=== PATIENT | female | born 1940 | race Caucasian/White ===

== ENCOUNTER 2017-04-30 10:42 | Inpatient (IN) | payer MEDICARE, OTHER ==
[~2017-04-30] VITALS: Ht 154.9 cm; Wt 114.0 kg
[~2017-04-30 10:42] MED LIST: AMLO5TAB4 PO; AMLODIPINE BESYLATE 5 MG TAB; ERGO500041 PO; FLUO-1; FLUO20CA22 PO; GABA100C PO; GABAPENTIN 100 MG; GABAPENTIN 100 MG CAPSULE; NITR100C6 PO; OMEP20CA10 PO; OMEPRAZOLE DR 20 MG CAPSULE; OXYC10TA47 PO; OXYCODONE 10 MG; VIT D2 1.25 MG (50,000 UNIT)
[2017-04-30] MEDS ORDERED: morphine 2 MG/ML inj. syringe IV ONE (12:50)
[2017-04-30] MEDS ORDERED: ondansetron/PF 4mg/2ml inj IV ONE (12:50)
[2017-04-30] MEDS ORDERED: morphine 5 MG/ML injection IV ONE (13:10)
[2017-04-30 13:38] LABS: BASOPHILS % (AUTO) 0.1 % (0-1); EOSINOPHILS # (AUTO) 0.1 X10'3 (0-0.9); EOSINOPHILS % (AUTO) 0.5 % (0-6); HEMATOCRIT 34.2 % (35.0-45.0); HEMOGLOBIN 11.1 g/dl (12.0-16.0); LYMPHOCYTES # (AUTO) 0.5 X10'3 (1.1-4.8); LYMPHOCYTES % (AUTO) 4.1 % (21-51); MEAN CORPUSCULAR HEMOGLOBIN 30.4 PG (27.0-31.0); MEAN CORPUSCULAR HGB CONC 32.6 % (33.0-36.5); MEAN CORPUSCULAR VOLUME 93.2 FL (78-98); MEAN PLATELET VOLUME 8.8 FL (7.4-10.4); MONOCYTES # (AUTO) 0.4 X10'3 (0-0.9); MONOCYTES % (AUTO) 3.1 % (2-12); NEUTROPHILS # (AUTO) 10.8 X10'3 (1.8-7.7); NEUTROPHILS % (AUTO) 92.2 % (42-75); PLATELET COUNT 348 X10'3 (140-440); RED BLOOD COUNT 3.67 X10'6 (4.20-5.60); RED CELL DISTRIBUTION WIDTH 15.1 % (11.5-14.5); WHITE BLOOD COUNT 11.7 X10'3 (4.5-11.0)
[2017-04-30 13:46] LABS: CLARITY,URINE CLOUDY (Clear); COLOR,URINE YELLOW (Yellow); GLUCOSE, URINE NEGATIVE (Neg); KETONES,URINE NEGATIVE (Neg); LEUKOCYTE ESTERASE ,URINE SMALL (Neg); NITRITES, URINE NEGATIVE (Neg); OCCULT BLOOD,URINE MODERATE (Neg); PROTEIN,URINE >=300 mg/dl (Neg); UROBILINOGEN,URINE 0.2 E.U/dL (0.2-1.0)
[2017-04-30 13:47] LABS: UA COLLECTION TYPE FOLEY CATH
[2017-04-30 13:58] LABS: BACTERIA,URINE 4+ /HPF (Neg); YEAST MANY /HPF (NEGATIVE)
[2017-04-30 13:59] LABS: SQUAMOUS EPITHELIAL CELL,UR MANY /LPF (FEW); TRANSITIONAL EPI CELLS,URINE MODERATE /HPF
[2017-04-30 14:00] LABS: WBC,URINE 50-100 /HPF (0-4)
[2017-04-30 14:01] LABS: ALANINE AMINOTRANSFERASE 19 U/L (12-78); ALBUMIN 3.1 G/DL (3.4-5.0); ALBUMIN/GLOBULIN RATIO 0.8 (1.1-1.5); ALKALINE PHOSPHATASE 94 IU/L (46-116); ANION GAP 8 (8-16); ASPARTATE AMINO TRANSFERASE 15 U/L (10-37); BILIRUBIN,TOTAL 0.4 MG/DL (0.1-1.0); BLOOD UREA NITROGEN 34 MG/DL (7-18); BUN/CREATININE RATIO 28.6 (6.6-38.0); CALCIUM 8.2 MG/DL (8.5-10.1); CHLORIDE 105 MMOL/L (99-107); CREATININE 1.19 MG/DL (0.40-0.90); GLUCOSE 195 MG/DL (70-104); LIPASE 137 U/L (73-393); POTASSIUM 5.5 MMOL/L (3.5-5.1); SODIUM 140 MMOL/L (135-145); TOTAL CARBON DIOXIDE 27.2 MMOL/L (24-32); eGFR 44 ML/MIN
[2017-04-30 14:02] LABS: AMORPHOUS URATES 3+
[2017-04-30] MEDS ORDERED: ondansetron/PF 4mg/2ml inj IV PRN (16:15)
[2017-04-30] MEDS ORDERED: magnesium hydroxide 30ml (MOM) UD suspension PO PRN (16:15)
[2017-04-30] MEDS ORDERED: mag hydrox/Alum hydrox/simeth 30ml oral suspension PO PRN (16:15)
[2017-04-30] MEDS ORDERED: HYDROmorphone 1 mg/ml syringe IV PRN (16:15)
[2017-04-30] MEDS ORDERED: piperacillin/tazo 3.375gm/50ml 50 ML IV ONE (16:29)
[2017-04-30] MEDS ORDERED: GABA-530 PO (16:34)
[2017-04-30] MEDS ORDERED: AMLO5TAB PO (16:34)
[2017-04-30] MEDS: normal saline 1000ml 1,000 ML IV SCH (17:07)
[2017-04-30 17:36] VITALS: BP 121/39
[2017-04-30] MEDS ORDERED: magnesium 4gm in 100ml NS 100 ML IV PRN (17:50)
[2017-04-30] MEDS ORDERED: magnesium Cl slow-release 64mg tablet PO PRN (17:50)
[2017-04-30] MEDS ORDERED: magnesium 2GM in 50ml NS 50 ML IV PRN (17:50)
[2017-04-30 18:00] VITALS: BP 111/35
[2017-04-30 18:31] LABS: MAGNESIUM 2.3 MG/DL (1.5-2.4)
[2017-04-30] MEDS: morphine 4 MG/ML inj SYRINge IV PRN (19:47)
[2017-04-30] MEDS: piperacillin/tazo 3.375gm/50ml 50 ML IV SCH (21:15)
[2017-04-30 22:00] VITALS: BP 108/35
[2017-04-30] MEDS: diatr meglu/diatrizoate 30ml oral sol.-(3 dose) bottle PO SCH (22:28)
[2017-04-30] MEDS: gabapentin 100mg capsule PO SCH (23:56)
[2017-05-01] VITALS (7 sets, daily range): BP systolic 104–144; BP diastolic 42–87
[2017-05-01 01:23] LABS: ALBUMIN 2.9 G/DL (3.4-5.0); ANION GAP 8 (8-16); BLOOD UREA NITROGEN 35 MG/DL (7-18); BUN/CREATININE RATIO 24.6 (6.6-38.0); CALCIUM 8.4 MG/DL (8.5-10.1); CHLORIDE 107 MMOL/L (99-107); CREATININE 1.42 MG/DL (0.40-0.90); GLUCOSE 144 MG/DL (70-104); MAGNESIUM 2.3 MG/DL (1.5-2.4); SODIUM 142 MMOL/L (135-145); TOTAL CARBON DIOXIDE 26.7 MMOL/L (24-32); eGFR 36 ML/MIN
[2017-05-01 01:32] LABS: POTASSIUM 6.5 MMOL/L (3.5-5.1)
[2017-05-01] MEDS: piperacillin/tazo 3.375gm/50ml 50 ML IV SCH (02:16)
[2017-05-01] MEDS: normal saline 1000ml 1,000 ML IV SCH ×2 (02:20→12:15)
[2017-05-01 02:45] LABS: BASOPHILS # (AUTO) 0.1 X10'3 (0-0.2); BASOPHILS % (AUTO) 1.2 % (0-1); EOSINOPHILS # (AUTO) 0.1 X10'3 (0-0.9); EOSINOPHILS % (AUTO) 1.2 % (0-6); HEMATOCRIT 31.5 % (35.0-45.0); HEMOGLOBIN 10.5 g/dl (12.0-16.0); LYMPHOCYTES % (AUTO) 11.1 % (21-51); MEAN CORPUSCULAR HGB CONC 33.4 % (33.0-36.5); MEAN CORPUSCULAR VOLUME 92.9 FL (78-98); MEAN PLATELET VOLUME 9.3 FL (7.4-10.4); MONOCYTES # (AUTO) 0.5 X10'3 (0-0.9); NEUTROPHILS # (AUTO) 6.9 X10'3 (1.8-7.7); NEUTROPHILS % (AUTO) 80.5 % (42-75); PLATELET COUNT 290 X10'3 (140-440); RED BLOOD COUNT 3.39 X10'6 (4.20-5.60); RED CELL DISTRIBUTION WIDTH 13.7 % (11.5-14.5); WHITE BLOOD COUNT 8.6 X10'3 (4.5-11.0)
[2017-05-01] MEDS ORDERED: insulin regular, human 10 units/0.1 ml syringe IV ONE (03:20)
[2017-05-01] MEDS ORDERED: calcium gluconate inj. 1 GM in normal saline 100ml IV soln 90 ML IV ONE (03:20)
[2017-05-01] MEDS ORDERED: dextrose 50%-water 50ml dispensing syringe IV ONE (03:20)
[2017-05-01] MEDS: morphine 4 MG/ML inj SYRINge IV PRN (04:02)
[2017-05-01] MEDS ORDERED: pantoprazole 40mg Tablet.DR PO SCH (07:30)
[2017-05-01 07:38] LABS: ALBUMIN 2.9 G/DL (3.4-5.0); ANION GAP 7 (8-16); BLOOD UREA NITROGEN 38 MG/DL (7-18); BUN/CREATININE RATIO 24.2 (6.6-38.0); CALCIUM 8.5 MG/DL (8.5-10.1); CHLORIDE 107 MMOL/L (99-107); CREATININE 1.57 MG/DL (0.40-0.90); GLUCOSE 128 MG/DL (70-104); POTASSIUM 5.8 MMOL/L (3.5-5.1); SODIUM 141 MMOL/L (135-145); TOTAL CARBON DIOXIDE 27.3 MMOL/L (24-32); eGFR 32 ML/MIN
[2017-05-01] MEDS: FLUoxetine 20mg capsule PO SCH (08:00)
[2017-05-01] MEDS ORDERED: amLODIPine 5mg tablet PO SCH (08:00)
[2017-05-01] MEDS: gabapentin 100mg capsule PO SCH ×2 (08:00→16:00)
[2017-05-01] MEDS: diatr meglu/diatrizoate 30ml oral sol.-(3 dose) bottle PO SCH ×2 (09:00→21:00)
[2017-05-01] MEDS ORDERED: sodium polystyrene sulfonate ENEMA 30gm/120ml RC ONE (09:10)
[2017-05-01] MEDS ORDERED: dextrose ORAL solution 15 GM/59 ML bottle PO PRN ×2 (09:35)
[2017-05-01] MEDS ORDERED: glucagon, human recombinant 1mg kit SUBCUT PRN (09:35)
[2017-05-01] MEDS ORDERED: MESSAGE TO PHARMACY PO ONE (09:35)
[2017-05-01 10:21] LABS: ABG BASE EXCESS -7.2 mmol/L (-2.0-3.0); ABG HCO3 22.4 mmol/L (22.0-26.0); ABG OXYGEN SATURATION 89.2 % (95-98); ABG PCO2 (T) 73.8 mmHg (32.0-45.0); ABG PH (T) 7.101 (7.350-7.450); ABG PO2 (T) 55.3 mmHg (83-108); ALLEN'S TEST Positive; FCOHb 0.2 % (0.5-1.5); FMetHb 0.3 % (0.3-1.12); FO2Hb 88.8 % (94-100); TOTAL HEMOGLOBIN 8.3 G/dl (12.0-16.0)
[2017-05-01 15:50] LABS: ABG BASE EXCESS -8.4 mmol/L (-2.0-3.0); ABG HCO3 20.8 mmol/L (22.0-26.0); ABG OXYGEN SATURATION 95.9 % (95-98); ABG PCO2 (T) 63.5 mmHg (32.0-45.0); ABG PH (T) 7.134 (7.350-7.450); ABG PO2 (T) 81.5 mmHg (83-108); ALLEN'S TEST Positive; FCOHb 0.3 % (0.5-1.5); FMetHb 0.2 % (0.3-1.12); FO2Hb 95.4 % (94-100); MINUTE VOLUME 6 L/min; RESPIRATORY RATE 24 b/min; RESPIRATORY RATE (OBSERVED) 25 b/min; TOTAL HEMOGLOBIN 9.6 G/dl (12.0-16.0)
[2017-05-01] MEDS ORDERED: metroNIDAZOLE-Flagyl 500mg/NS 100 ML IV SCH (16:00)
[2017-05-01] MEDS ORDERED: mineral oil 133ml enema RC PRN (17:35)
[2017-05-01] MEDS ORDERED: mineral oil 133ml enema RC ONE (17:35)
[2017-05-01] MEDS: ampicill/sulbac 1.5gm/NS 100ml 100 ML IV SCH (20:03)
[2017-05-01] MEDS: insulin glargine (Lantus) pen - multi-dose SQ SCH (21:00)
[2017-05-01] MEDS: furosemide 40mg/4ml inj IV SCH (21:07)
[2017-05-02] VITALS (10 sets, daily range): BP systolic 111–129; BP diastolic 36–69
[2017-05-02] MEDS: ampicill/sulbac 1.5gm/NS 100ml 100 ML IV SCH ×4 (01:55→20:00)
[2017-05-02] MEDS: normal saline 1000ml 1,000 ML IV SCH ×2 (01:56→08:15)
[2017-05-02 05:57] LABS: BASOPHILS % (AUTO) 0.3 % (0-1); EOSINOPHILS # (AUTO) 0.1 X10'3 (0-0.9); EOSINOPHILS % (AUTO) 1.4 % (0-6); HEMATOCRIT 29.5 % (35.0-45.0); HEMOGLOBIN 9.6 g/dl (12.0-16.0); LYMPHOCYTES # (AUTO) 0.9 X10'3 (1.1-4.8); LYMPHOCYTES % (AUTO) 10.5 % (21-51); MEAN CORPUSCULAR HEMOGLOBIN 30.5 PG (27.0-31.0); MEAN CORPUSCULAR HGB CONC 32.6 % (33.0-36.5); MEAN CORPUSCULAR VOLUME 93.3 FL (78-98); MEAN PLATELET VOLUME 9.1 FL (7.4-10.4); MONOCYTES # (AUTO) 0.7 X10'3 (0-0.9); MONOCYTES % (AUTO) 7.4 % (2-12); NEUTROPHILS # (AUTO) 7.1 X10'3 (1.8-7.7); NEUTROPHILS % (AUTO) 80.4 % (42-75); PLATELET COUNT 256 X10'3 (140-440); RED BLOOD COUNT 3.16 X10'6 (4.20-5.60); WHITE BLOOD COUNT 8.8 X10'3 (4.5-11.0)
[2017-05-02 06:33] LABS: ALBUMIN 2.5 G/DL (3.4-5.0); ANION GAP 10 (8-16); BLOOD UREA NITROGEN 41 MG/DL (7-18); BUN/CREATININE RATIO 21.4 (6.6-38.0); CALCIUM 8.1 MG/DL (8.5-10.1); CHLORIDE 109 MMOL/L (99-107); CREATININE 1.92 MG/DL (0.40-0.90); GLUCOSE 72 MG/DL (70-104); MAGNESIUM 2.2 MG/DL (1.5-2.4); SODIUM 142 MMOL/L (135-145); TOTAL CARBON DIOXIDE 23.4 MMOL/L (24-32); eGFR 25 ML/MIN
[2017-05-02 06:43] LABS: POTASSIUM 6.3 MMOL/L (3.5-5.1)
[2017-05-02] MEDS: dextrose 50%-water 50ml dispensing syringe IV PRN ×3 (07:29→13:38)
[2017-05-02] MEDS: furosemide 40mg/4ml inj IV SCH (07:29)
[2017-05-02] MEDS ORDERED: insulin regular, human 10 units/0.1 ml syringe IV ONE (07:40)
[2017-05-02] MEDS ORDERED: dextrose 50%-water 50ml dispensing syringe IV ONE (07:40)
[2017-05-02] MEDS ORDERED: sodium bicarbonate (8.4%) 1 mEq/ml syringe IV ONE (07:40)
[2017-05-02] MEDS ORDERED: albuterol 2.5 MG/3 ML nebule NEB ONE (07:40)
[2017-05-02] MEDS: FLUoxetine 20mg capsule PO SCH (08:00)
[2017-05-02] MEDS: gabapentin 100mg capsule PO SCH ×3 (08:00→16:00)
[2017-05-02] MEDS ORDERED: levoFLOXACIN-Levaquin 500mg/D5 100 ML IV SCH (08:00)
[2017-05-02] MEDS ORDERED: calcium gluconate inj. 1 GM in normal saline 100ml IV soln 90 ML IV ONE (08:45)
[2017-05-02 10:25] LABS: ABG BASE EXCESS -5.2 mmol/L (-2.0-3.0); ABG HCO3 21.5 mmol/L (22.0-26.0); ABG OXYGEN SATURATION 96.7 % (95-98); ABG PH (T) 7.271 (7.350-7.450); ABG PO2 (T) 88.4 mmHg (83-108); FCOHb 0.3 % (0.5-1.5); FMetHb 0.3 % (0.3-1.12); FO2Hb 96.1 % (94-100); MINUTE VOLUME 16 L/min; PATIENT TEMPERATURE 37.3; RESPIRATORY RATE 26 b/min; RESPIRATORY RATE (OBSERVED) 26 b/min; TIDAL VOLUME 594 mL; TOTAL HEMOGLOBIN 9.8 G/dl (12.0-16.0)
[2017-05-02] MEDS: dextrose 5%-water 1,000 ML IV SCH (15:21)
[2017-05-02 15:29] LABS: ALBUMIN 2.4 G/DL (3.4-5.0); ANION GAP 14 (8-16); BLOOD UREA NITROGEN 44 MG/DL (7-18); BUN/CREATININE RATIO 20.7 (6.6-38.0); CALCIUM 7.9 MG/DL (8.5-10.1); CHLORIDE 109 MMOL/L (99-107); CLARITY,URINE Turbid (Clear); COLOR,URINE Yellow (Yellow); CREATININE 2.13 MG/DL (0.40-0.90); GLUCOSE 80 MG/DL (70-104); GLUCOSE, URINE Negative (Neg); KETONES,URINE Negative (Neg); LEUKOCYTE ESTERASE ,URINE Large (Neg); NITRITES, URINE Negative (Neg); OCCULT BLOOD,URINE Trace (Neg); POTASSIUM 5.7 MMOL/L (3.5-5.1); PROTEIN,URINE 100 mg/dl (Neg); SODIUM 146 MMOL/L (135-145); TOTAL CARBON DIOXIDE 23.4 MMOL/L (24-32); eGFR 23 ML/MIN
[2017-05-02 15:34] LABS: UA COLLECTION TYPE FOLEY CATH
[2017-05-02 15:54] LABS: BACTERIA,URINE 4+ /HPF (Neg); RBC,URINE NONE SEEN /HPF (0-2); SQUAMOUS EPITHELIAL CELL,UR FEW /LPF (FEW); WBC,URINE TNTC /HPF (0-4)
[2017-05-02 15:55] LABS: YEAST MANY /HPF (NEGATIVE)
[2017-05-02 17:22] LABS: UA EOSINOPHILS NO EOS /HPF
[2017-05-02] MEDS: insulin glargine (Lantus) pen - multi-dose SQ SCH (21:00)
[2017-05-03] VITALS (7 sets, daily range): BP systolic 117–148; BP diastolic 33–77
[2017-05-03] MEDS: gabapentin 100mg capsule PO SCH ×3 (00:28→17:18)
[2017-05-03] MEDS: morphine 4 MG/ML inj SYRINge IV PRN (02:09)
[2017-05-03] MEDS: ampicill/sulbac 1.5gm/NS 100ml 100 ML IV SCH ×4 (02:16→20:47)
[2017-05-03 06:30] LABS: BASOPHILS % (AUTO) 0.6 % (0-1); EOSINOPHILS # (AUTO) 0.2 X10'3 (0-0.9); EOSINOPHILS % (AUTO) 2.5 % (0-6); HEMATOCRIT 27.4 % (35.0-45.0); HEMOGLOBIN 9.1 g/dl (12.0-16.0); LYMPHOCYTES # (AUTO) 1.1 X10'3 (1.1-4.8); LYMPHOCYTES % (AUTO) 17.2 % (21-51); MEAN CORPUSCULAR HEMOGLOBIN 30.2 PG (27.0-31.0); MEAN CORPUSCULAR HGB CONC 33.1 % (33.0-36.5); MEAN CORPUSCULAR VOLUME 91.2 FL (78-98); MEAN PLATELET VOLUME 9.3 FL (7.4-10.4); MONOCYTES # (AUTO) 0.7 X10'3 (0-0.9); MONOCYTES % (AUTO) 10.9 % (2-12); NEUTROPHILS # (AUTO) 4.6 X10'3 (1.8-7.7); NEUTROPHILS % (AUTO) 68.8 % (42-75); PLATELET COUNT 246 X10'3 (140-440); RED BLOOD COUNT 3.01 X10'6 (4.20-5.60); RED CELL DISTRIBUTION WIDTH 14.9 % (11.5-14.5); WHITE BLOOD COUNT 6.7 X10'3 (4.5-11.0)
[2017-05-03 06:39] LABS: ALBUMIN 2.4 G/DL (3.4-5.0); ANION GAP 10 (8-16); BLOOD UREA NITROGEN 42 MG/DL (7-18); BUN/CREATININE RATIO 19.1 (6.6-38.0); CALCIUM 7.6 MG/DL (8.5-10.1); CHLORIDE 108 MMOL/L (99-107); GLUCOSE 89 MG/DL (70-104); MAGNESIUM 2.1 MG/DL (1.5-2.4); POTASSIUM 5.3 MMOL/L (3.5-5.1); SODIUM 142 MMOL/L (135-145); TOTAL CARBON DIOXIDE 23.7 MMOL/L (24-32); eGFR 22 ML/MIN
[2017-05-03] MEDS: FLUoxetine 20mg capsule PO SCH (07:18)
[2017-05-03] MEDS: dextrose 5%-water 1,000 ML IV SCH (07:24)
[2017-05-03] MEDS ORDERED: guaiFENesin/codeine phos 10ml UD oral syrup PO PRN (07:30)
[2017-05-03] MEDS ORDERED: methylPREDNISolone sod succ/PF 40mg inj. IV ONE (07:35)
[2017-05-03 08:00] LABS: ABG HCO3 20.2 mmol/L (22.0-26.0); ABG OXYGEN SATURATION 94.6 % (95-98); ABG PCO2 (T) 42.5 mmHg (32.0-45.0); ABG PH (T) 7.294 (7.350-7.450); ABG PO2 (T) 74.6 mmHg (83-108); ALLEN'S TEST Positive; FCOHb 0.3 % (0.5-1.5); FLOW 2 L/min; FMetHb 0.3 % (0.3-1.12); TOTAL HEMOGLOBIN 9.9 G/dl (12.0-16.0)
[2017-05-03] MEDS: insulin regular, human 10 units/0.1 ml syringe IV ONE ×2 (08:20→10:35)
[2017-05-03] MEDS ORDERED: albuterol 2.5 MG/3 ML nebule NEB ONE (08:20)
[2017-05-03] MEDS ORDERED: dextrose 50%-water 50ml dispensing syringe IV ONE (08:20)
[2017-05-03] MEDS ORDERED: magnesium hydroxide 30ml (MOM) UD suspension PO ONE (13:20)
[2017-05-03] MEDS: lactobacillus rhamnosus 10,000 MMU CELLS/CAPSULE PO SCH (17:18)
[2017-05-03] MEDS: nystatin 15 GM powder TP SCH (20:47)
[2017-05-03] MEDS: insulin glargine (Lantus) pen - multi-dose SQ SCH (21:00)
[2017-05-04] MEDS: gabapentin 100mg capsule PO SCH ×4 (00:18→23:48)
[2017-05-04 02:00] VITALS: BP 144/47
[2017-05-04] MEDS: ampicill/sulbac 1.5gm/NS 100ml 100 ML IV SCH ×4 (02:10→19:24)
[2017-05-04 06:35] VITALS: BP 146/45
[2017-05-04 07:29] LABS: BASOPHILS % (AUTO) 0.1 % (0-1); HEMATOCRIT 29.4 % (35.0-45.0); HEMOGLOBIN 9.6 g/dl (12.0-16.0); LYMPHOCYTES # (AUTO) 0.3 X10'3 (1.1-4.8); LYMPHOCYTES % (AUTO) 8.7 % (21-51); MEAN CORPUSCULAR HGB CONC 32.7 % (33.0-36.5); MEAN CORPUSCULAR VOLUME 91.9 FL (78-98); MEAN PLATELET VOLUME 9.1 FL (7.4-10.4); MONOCYTES # (AUTO) 0.2 X10'3 (0-0.9); MONOCYTES % (AUTO) 5.8 % (2-12); NEUTROPHILS # (AUTO) 3.3 X10'3 (1.8-7.7); NEUTROPHILS % (AUTO) 84.4 % (42-75); PLATELET COUNT 251 X10'3 (140-440); RED CELL DISTRIBUTION WIDTH 14.7 % (11.5-14.5); WHITE BLOOD COUNT 3.9 X10'3 (4.5-11.0)
[2017-05-04 07:41] LABS: ALBUMIN 2.6 G/DL (3.4-5.0); ANION GAP 11 (8-16); BLOOD UREA NITROGEN 43 MG/DL (7-18); BUN/CREATININE RATIO 20.9 (6.6-38.0); CALCIUM 7.8 MG/DL (8.5-10.1); CHLORIDE 104 MMOL/L (99-107); CREATININE 2.06 MG/DL (0.40-0.90); GLUCOSE 194 MG/DL (70-104); MAGNESIUM 2.3 MG/DL (1.5-2.4); POTASSIUM 5.7 MMOL/L (3.5-5.1); SODIUM 139 MMOL/L (135-145); TOTAL CARBON DIOXIDE 24.1 MMOL/L (24-32); eGFR 23 ML/MIN
[2017-05-04] MEDS: budesonide 0.5mg/2ml UD nebule IH SCH ×2 (08:00→20:05)
[2017-05-04] MEDS: lactobacillus rhamnosus 10,000 MMU CELLS/CAPSULE PO SCH ×2 (08:03→17:34)
[2017-05-04] MEDS: FLUoxetine 20mg capsule PO SCH (08:03)
[2017-05-04] MEDS: metoprolol tartrate 12.5mg (1/2 tablet) PO SCH ×2 (08:13→20:00)
[2017-05-04] MEDS: nystatin 15 GM powder TP SCH ×3 (08:16→21:21)
[2017-05-04] MEDS ORDERED: sodium polystyrene sulfonate 15gm/60ml oral suspension PO ONE (08:40)
[2017-05-04] MEDS ORDERED: sodium bicarbonate (8.4%) 1 mEq/ml syringe IV ONE (08:40)
[2017-05-04] MEDS ORDERED: insulin regular, human 10 units/0.1 ml syringe IV ONE (08:40)
[2017-05-04] MEDS ORDERED: dextrose 50%-water 50ml dispensing syringe IV ONE (08:40)
[2017-05-04 11:00] VITALS: BP 142/51
[2017-05-04 15:00] VITALS: BP 135/44
[2017-05-04 19:00] VITALS: BP 142/46
[2017-05-04] MEDS: insulin Lispro (HumaLOG) vial - multi-dose SQ SCH (19:32)
[2017-05-04] MEDS: insulin glargine (Lantus) pen - multi-dose SQ SCH (21:20)
[2017-05-04 23:00] VITALS: BP 137/62
[2017-05-05] MEDS: ampicill/sulbac 1.5gm/NS 100ml 100 ML IV SCH ×4 (02:37→21:38)
[2017-05-05 02:40] VITALS: BP 117/40
[2017-05-05 06:21] LABS: BASOPHILS # (AUTO) 0.1 X10'3 (0-0.2); BASOPHILS % (AUTO) 0.6 % (0-1); EOSINOPHILS # (AUTO) 0.3 X10'3 (0-0.9); EOSINOPHILS % (AUTO) 2.7 % (0-6); HEMOGLOBIN 10.3 g/dl (12.0-16.0); LYMPHOCYTES # (AUTO) 0.8 X10'3 (1.1-4.8); LYMPHOCYTES % (AUTO) 7.3 % (21-51); MEAN CORPUSCULAR HEMOGLOBIN 30.2 PG (27.0-31.0); MEAN CORPUSCULAR HGB CONC 33.1 % (33.0-36.5); MEAN CORPUSCULAR VOLUME 91.2 FL (78-98); MEAN PLATELET VOLUME 8.8 FL (7.4-10.4); MONOCYTES # (AUTO) 0.7 X10'3 (0-0.9); MONOCYTES % (AUTO) 6.7 % (2-12); NEUTROPHILS # (AUTO) 8.7 X10'3 (1.8-7.7); NEUTROPHILS % (AUTO) 82.7 % (42-75); PLATELET COUNT 288 X10'3 (140-440); RED CELL DISTRIBUTION WIDTH 14.9 % (11.5-14.5); WHITE BLOOD COUNT 10.5 X10'3 (4.5-11.0)
[2017-05-05 06:29] LABS: ALBUMIN 2.8 G/DL (3.4-5.0); ANION GAP 12 (8-16); BLOOD UREA NITROGEN 42 MG/DL (7-18); BUN/CREATININE RATIO 20.2 (6.6-38.0); CHLORIDE 105 MMOL/L (99-107); CREATININE 2.08 MG/DL (0.40-0.90); GLUCOSE 93 MG/DL (70-104); MAGNESIUM 2.3 MG/DL (1.5-2.4); POTASSIUM 3.7 MMOL/L (3.5-5.1); SODIUM 144 MMOL/L (135-145); TOTAL CARBON DIOXIDE 26.9 MMOL/L (24-32); eGFR 23 ML/MIN
[2017-05-05 07:00] VITALS: BP 140/50
[2017-05-05] MEDS: nystatin 15 GM powder TP SCH ×3 (08:00→21:45)
[2017-05-05] MEDS ORDERED: normal saline 250ml IV soln 250 ML IV ONE (08:05)
[2017-05-05 08:50] LABS: ABG BASE EXCESS -5.9 mmol/L (-2.0-3.0); ABG HCO3 21.3 mmol/L (22.0-26.0); ABG OXYGEN SATURATION 92.4 % (95-98); ABG PCO2 (T) 48.4 mmHg (32.0-45.0); ABG PH (T) 7.259 (7.350-7.450); ALLEN'S TEST Positive; FCOHb 0.3 % (0.5-1.5); FLOW 2 L/min; FMetHb 0.3 % (0.3-1.12); FO2Hb 91.8 % (94-100); PATIENT TEMPERATURE 36.3; TOTAL HEMOGLOBIN 10.4 G/dl (12.0-16.0)
[2017-05-05] MEDS: budesonide 0.5mg/2ml UD nebule IH SCH ×2 (08:54→20:41)
[2017-05-05] MEDS: lactobacillus rhamnosus 10,000 MMU CELLS/CAPSULE PO SCH ×2 (09:12→17:13)
[2017-05-05] MEDS: metoprolol tartrate 12.5mg (1/2 tablet) PO SCH (09:13)
[2017-05-05] MEDS: FLUoxetine 20mg capsule PO SCH (09:13)
[2017-05-05] MEDS: gabapentin 100mg capsule PO SCH ×2 (09:13→17:13)
[2017-05-05] MEDS: insulin Lispro (HumaLOG) vial - multi-dose SQ SCH (09:55)
[2017-05-05 11:00] VITALS: BP 138/67
[2017-05-05] MEDS ORDERED: furosemide 20 MG/2 ML vial IV ONE (12:35)
[2017-05-05 15:00] VITALS: BP 117/39
[2017-05-05] MEDS: dextrose 50%-water 50ml dispensing syringe IV PRN (17:28)
[2017-05-05 19:00] VITALS: BP 139/38
[2017-05-05] MEDS: insulin glargine (Lantus) pen - multi-dose SQ SCH (21:00)
[2017-05-05 23:00] VITALS: BP 150/40
[2017-05-06] MEDS: gabapentin 100mg capsule PO SCH ×4 (00:04→23:27)
[2017-05-06] MEDS: ampicill/sulbac 1.5gm/NS 100ml 100 ML IV SCH ×4 (02:24→20:26)
[2017-05-06 03:00] VITALS: BP 133/37
[2017-05-06 05:56] LABS: BASOPHILS % (AUTO) 0.3 % (0-1); EOSINOPHILS # (AUTO) 0.3 X10'3 (0-0.9); EOSINOPHILS % (AUTO) 2.5 % (0-6); HEMATOCRIT 29.7 % (35.0-45.0); HEMOGLOBIN 9.8 g/dl (12.0-16.0); LYMPHOCYTES # (AUTO) 0.5 X10'3 (1.1-4.8); LYMPHOCYTES % (AUTO) 4.3 % (21-51); MEAN CORPUSCULAR HEMOGLOBIN 30.5 PG (27.0-31.0); MEAN CORPUSCULAR HGB CONC 33.1 % (33.0-36.5); MEAN CORPUSCULAR VOLUME 92.1 FL (78-98); MEAN PLATELET VOLUME 8.5 FL (7.4-10.4); MONOCYTES # (AUTO) 0.6 X10'3 (0-0.9); MONOCYTES % (AUTO) 5.7 % (2-12); NEUTROPHILS # (AUTO) 9.2 X10'3 (1.8-7.7); NEUTROPHILS % (AUTO) 87.2 % (42-75); PLATELET COUNT 263 X10'3 (140-440); RED BLOOD COUNT 3.23 X10'6 (4.20-5.60); RED CELL DISTRIBUTION WIDTH 14.5 % (11.5-14.5); WHITE BLOOD COUNT 10.6 X10'3 (4.5-11.0)
[2017-05-06 06:19] LABS: ALANINE AMINOTRANSFERASE 29 U/L (12-78); ALBUMIN 2.6 G/DL (3.4-5.0); ALBUMIN/GLOBULIN RATIO 0.8 (1.1-1.5); ALKALINE PHOSPHATASE 153 IU/L (46-116); ANION GAP 12 (8-16); ASPARTATE AMINO TRANSFERASE 14 U/L (10-37); BILIRUBIN,TOTAL 0.5 MG/DL (0.1-1.0); BLOOD UREA NITROGEN 41 MG/DL (7-18); BUN/CREATININE RATIO 20.9 (6.6-38.0); CALCIUM 7.5 MG/DL (8.5-10.1); CHLORIDE 104 MMOL/L (99-107); CREATININE 1.96 MG/DL (0.40-0.90); SODIUM 142 MMOL/L (135-145); eGFR 25 ML/MIN
[2017-05-06 06:33] LABS: GLUCOSE 99 MG/DL (70-104)
[2017-05-06 06:38] LABS: POTASSIUM 2.8 MMOL/L (3.5-5.1)
[2017-05-06] MEDS ORDERED: magnesium 4gm in 100ml NS 100 ML IV PRN (06:45)
[2017-05-06] MEDS ORDERED: magnesium 2GM in 50ml NS 50 ML IV PRN (06:45)
[2017-05-06] MEDS ORDERED: potassium Cl 20 mEq SR tablet PO PRN (06:45)
[2017-05-06] MEDS ORDERED: magnesium Cl slow-release 64mg tablet PO PRN (06:45)
[2017-05-06] MEDS ORDERED: potassium Cl 40MEQ/NS 500ml 500 ML IV PRN ×2 (06:45)
[2017-05-06 07:00] VITALS: BP 159/43
[2017-05-06] MEDS: FLUoxetine 20mg capsule PO SCH (07:12)
[2017-05-06] MEDS: lactobacillus rhamnosus 10,000 MMU CELLS/CAPSULE PO SCH ×2 (07:12→16:29)
[2017-05-06] MEDS: potassium Cl 20 mEq SR tablet PO PRN ×3 (07:16→16:30)
[2017-05-06] MEDS: nystatin 15 GM powder TP SCH ×3 (08:00→20:33)
[2017-05-06] MEDS: budesonide 0.5mg/2ml UD nebule IH SCH ×2 (08:13→19:47)
[2017-05-06 11:00] VITALS: BP 145/46
[2017-05-06 13:07] LABS: ALBUMIN 2.8 G/DL (3.4-5.0); ANION GAP 12 (8-16); BLOOD UREA NITROGEN 40 MG/DL (7-18); BUN/CREATININE RATIO 20.6 (6.6-38.0); CALCIUM 7.6 MG/DL (8.5-10.1); CHLORIDE 103 MMOL/L (99-107); CREATININE 1.94 MG/DL (0.40-0.90); GLUCOSE 124 MG/DL (70-104); POTASSIUM 3.1 MMOL/L (3.5-5.1); SODIUM 141 MMOL/L (135-145); TOTAL CARBON DIOXIDE 25.9 MMOL/L (24-32); eGFR 25 ML/MIN
[2017-05-06] MEDS: furosemide 40mg/4ml inj IV SCH (14:33)
[2017-05-06 15:00] VITALS: BP 141/48
[2017-05-06] MEDS: potassium Cl 20 mEq SR tablet PO SCH (17:30)
[2017-05-06 19:00] VITALS: BP 168/48
[2017-05-06] MEDS: insulin glargine (Lantus) pen - multi-dose SQ SCH (20:33)
[2017-05-06] MEDS ORDERED: neomy sulf/bacitrac zn/polymixin b oint 14.2 gm tube TP SCH (21:00)
[2017-05-06 23:00] VITALS: BP 134/55
[2017-05-07] MEDS: ampicill/sulbac 1.5gm/NS 100ml 100 ML IV SCH ×4 (02:09→19:52)
[2017-05-07 03:00] VITALS: BP 149/37
[2017-05-07 06:06] LABS: MAGNESIUM 2.2 MG/DL (1.5-2.4); POTASSIUM 4.2 MMOL/L (3.5-5.1)
[2017-05-07] MEDS: potassium Cl 20 mEq SR tablet PO SCH ×2 (06:41→16:41)
[2017-05-07 07:00] VITALS: BP 133/33
[2017-05-07] MEDS: furosemide 40mg/4ml inj IV SCH ×2 (07:46→19:53)
[2017-05-07] MEDS: lactobacillus rhamnosus 10,000 MMU CELLS/CAPSULE PO SCH ×2 (07:46→16:40)
[2017-05-07] MEDS: gabapentin 100mg capsule PO SCH ×3 (07:46→23:35)
[2017-05-07] MEDS: FLUoxetine 20mg capsule PO SCH (07:46)
[2017-05-07] MEDS: budesonide 0.5mg/2ml UD nebule IH SCH ×2 (07:58→20:41)
[2017-05-07] MEDS: nystatin 15 GM powder TP SCH ×3 (08:00→21:58)
[2017-05-07] MEDS ORDERED: furosemide 40mg/4ml inj IV ONE (10:05)
[2017-05-07] MEDS ORDERED: metoprolol tartrate 12.5mg (1/2 tablet) PO PRN (10:05)
[2017-05-07 11:00] VITALS: BP 177/60
[2017-05-07 12:15] LABS: ABG BASE EXCESS -5.1 mmol/L (-2.0-3.0); ABG HCO3 21.7 mmol/L (22.0-26.0); ABG OXYGEN SATURATION 82.2 % (95-98); ABG PCO2 (T) 48.3 mmHg (32.0-45.0); ABG PH (T) 7.271 (7.350-7.450); ABG PO2 (T) 44.2 mmHg (83-108); ALLEN'S TEST Positive; FCOHb 0.2 % (0.5-1.5); FMetHb 0.3 % (0.3-1.12); FO2Hb 81.8 % (94-100); TOTAL HEMOGLOBIN 10.9 G/dl (12.0-16.0)
[2017-05-07 15:00] VITALS: BP 144/47
[2017-05-07 19:00] VITALS: BP 189/70
[2017-05-07] MEDS: acetaminophen 325mg tablet PO PRN (19:03)
[2017-05-07] MEDS: morphine 4 MG/ML inj SYRINge IV PRN ×2 (19:54→23:36)
[2017-05-07] MEDS: carVEDilol 3.125mg tablet PO SCH (20:00)
[2017-05-07] MEDS: insulin glargine (Lantus) pen - multi-dose SQ SCH (21:00)
[2017-05-07 23:00] VITALS: BP 143/46
[2017-05-08] MEDS: ampicill/sulbac 1.5gm/NS 100ml 100 ML IV SCH ×4 (02:27→20:01)
[2017-05-08 03:00] VITALS: BP 133/39
[2017-05-08] MEDS: morphine 4 MG/ML inj SYRINge IV PRN (05:48)
[2017-05-08 05:50] LABS: BASOPHILS % (AUTO) 0.3 % (0-1); EOSINOPHILS # (AUTO) 0.3 X10'3 (0-0.9); EOSINOPHILS % (AUTO) 3.5 % (0-6); HEMATOCRIT 26.7 % (35.0-45.0); HEMOGLOBIN 9.1 g/dl (12.0-16.0); LYMPHOCYTES # (AUTO) 0.8 X10'3 (1.1-4.8); LYMPHOCYTES % (AUTO) 10.4 % (21-51); MEAN CORPUSCULAR HEMOGLOBIN 30.7 PG (27.0-31.0); MEAN CORPUSCULAR VOLUME 90.1 FL (78-98); MONOCYTES # (AUTO) 0.6 X10'3 (0-0.9); NEUTROPHILS # (AUTO) 5.7 X10'3 (1.8-7.7); NEUTROPHILS % (AUTO) 77.8 % (42-75); PLATELET COUNT 246 X10'3 (140-440); RED BLOOD COUNT 2.96 X10'6 (4.20-5.60); RED CELL DISTRIBUTION WIDTH 14.9 % (11.5-14.5); WHITE BLOOD COUNT 7.4 X10'3 (4.5-11.0)
[2017-05-08 06:00] VITALS: BP 164/54
[2017-05-08 06:11] LABS: ALBUMIN 2.4 G/DL (3.4-5.0); ANION GAP 11 (8-16); BLOOD UREA NITROGEN 37 MG/DL (7-18); BUN/CREATININE RATIO 18.9 (6.6-38.0); CALCIUM 7.5 MG/DL (8.5-10.1); CHLORIDE 105 MMOL/L (99-107); CREATININE 1.96 MG/DL (0.40-0.90); GLUCOSE 101 MG/DL (70-104); MAGNESIUM 2.1 MG/DL (1.5-2.4); POTASSIUM 4.2 MMOL/L (3.5-5.1); SODIUM 142 MMOL/L (135-145); TOTAL CARBON DIOXIDE 25.8 MMOL/L (24-32); eGFR 25 ML/MIN
[2017-05-08 07:23] LABS: EOSINOPHILS % (MANUAL) 2 % (0-6); LYMPHOCYTES % (MANUAL) 10 % (21-51); MONOCYTES % (MANUAL) 9 % (2-12); NEUTROPHILS % (MANUAL) 78 % (42-75); TOTAL CELLS COUNTED 100
[2017-05-08 07:24] LABS: NUCLEATED RED BLOOD CELLS 1 /100WBC (0-0); PLATELET ESTIMATE NORMAL
[2017-05-08 07:25] LABS: TARGET CELLS FEW
[2017-05-08] MEDS: carVEDilol 3.125mg tablet PO SCH ×2 (08:18→20:01)
[2017-05-08] MEDS: lactobacillus rhamnosus 10,000 MMU CELLS/CAPSULE PO SCH ×2 (08:18→16:58)
[2017-05-08] MEDS: furosemide 40mg/4ml inj IV SCH ×2 (08:19→20:01)
[2017-05-08] MEDS: gabapentin 100mg capsule PO SCH ×2 (08:19→16:58)
[2017-05-08] MEDS: potassium Cl 20 mEq SR tablet PO SCH ×2 (08:19→16:58)
[2017-05-08] MEDS: FLUoxetine 20mg capsule PO SCH (08:19)
[2017-05-08] MEDS: nystatin 15 GM powder TP SCH ×3 (08:21→20:01)
[2017-05-08] MEDS: budesonide 0.5mg/2ml UD nebule IH SCH ×2 (08:54→20:30)
[2017-05-08 11:00] VITALS: BP 162/54
[2017-05-08 15:00] VITALS: BP 137/39
[2017-05-08 19:00] VITALS: BP 162/45
[2017-05-08] MEDS: insulin glargine (Lantus) pen - multi-dose SQ SCH (21:00)
[2017-05-08 23:00] VITALS: BP 158/54
[2017-05-09] VITALS (9 sets, daily range): BP systolic 143–193; BP diastolic 37–73
[2017-05-09] MEDS: gabapentin 100mg capsule PO SCH ×3 (00:10→15:48)
[2017-05-09 06:00] LABS: BASOPHILS % (AUTO) 0.3 % (0-1); EOSINOPHILS # (AUTO) 0.3 X10'3 (0-0.9); EOSINOPHILS % (AUTO) 3.6 % (0-6); HEMATOCRIT 29.1 % (35.0-45.0); HEMOGLOBIN 9.4 g/dl (12.0-16.0); LYMPHOCYTES # (AUTO) 0.7 X10'3 (1.1-4.8); LYMPHOCYTES % (AUTO) 8.6 % (21-51); MEAN CORPUSCULAR HGB CONC 32.5 % (33.0-36.5); MEAN CORPUSCULAR VOLUME 92.3 FL (78-98); MEAN PLATELET VOLUME 8.7 FL (7.4-10.4); MONOCYTES # (AUTO) 0.5 X10'3 (0-0.9); MONOCYTES % (AUTO) 6.1 % (2-12); NEUTROPHILS # (AUTO) 6.8 X10'3 (1.8-7.7); NEUTROPHILS % (AUTO) 81.4 % (42-75); PLATELET COUNT 267 X10'3 (140-440); RED BLOOD COUNT 3.15 X10'6 (4.20-5.60); RED CELL DISTRIBUTION WIDTH 14.9 % (11.5-14.5); WHITE BLOOD COUNT 8.4 X10'3 (4.5-11.0)
[2017-05-09 06:25] LABS: ALBUMIN 2.5 G/DL (3.4-5.0); ANION GAP 10 (8-16); BLOOD UREA NITROGEN 37 MG/DL (7-18); BUN/CREATININE RATIO 19.8 (6.6-38.0); CALCIUM 8.1 MG/DL (8.5-10.1); CHLORIDE 105 MMOL/L (99-107); CREATININE 1.87 MG/DL (0.40-0.90); GLUCOSE 94 MG/DL (70-104); MAGNESIUM 2.2 MG/DL (1.5-2.4); POTASSIUM 4.5 MMOL/L (3.5-5.1); SODIUM 142 MMOL/L (135-145); TOTAL CARBON DIOXIDE 27.1 MMOL/L (24-32); eGFR 26 ML/MIN
[2017-05-09] MEDS: carVEDilol 3.125mg tablet PO SCH ×3 (07:50→21:35)
[2017-05-09] MEDS: FLUoxetine 20mg capsule PO SCH (07:50)
[2017-05-09] MEDS: lactobacillus rhamnosus 10,000 MMU CELLS/CAPSULE PO SCH ×2 (07:50→17:30)
[2017-05-09] MEDS: potassium Cl 20 mEq SR tablet PO SCH ×3 (07:51→17:30)
[2017-05-09] MEDS: furosemide 40mg/4ml inj IV SCH ×2 (07:51→21:34)
[2017-05-09] MEDS: budesonide 0.5mg/2ml UD nebule IH SCH ×2 (07:51→19:52)
[2017-05-09] MEDS: nystatin 15 GM powder TP SCH ×3 (07:53→23:13)
[2017-05-09] MEDS ORDERED: LORazepam 0.5 MG tablet PO PRN ×2 (11:30→11:45)
[2017-05-09] MEDS: CLONAZEPAM 0.25 MG oral disentigrating tablet (ODT) PO SCH ×2 (14:14→23:12)
[2017-05-09] MEDS: morphine 4 MG/ML inj SYRINge IV PRN (15:48)
[2017-05-09] MEDS: NUT.TX.GLUC.INTOLER,LAC-FR,REG (BOOST GLUCOSE CONTROL) 237 ML PO SCH (18:00)
[2017-05-09] MEDS: insulin glargine (Lantus) pen - multi-dose SQ SCH (21:00)
[2017-05-10] MEDS: gabapentin 100mg capsule PO SCH ×3 (00:56→16:00)
[2017-05-10 03:00] VITALS: BP 137/36
[2017-05-10 06:00] VITALS: BP 165/42
[2017-05-10 06:39] LABS: BASOPHILS % (AUTO) 0.2 % (0-1); EOSINOPHILS # (AUTO) 0.3 X10'3 (0-0.9); EOSINOPHILS % (AUTO) 4.3 % (0-6); HEMATOCRIT 28.6 % (35.0-45.0); HEMOGLOBIN 9.3 g/dl (12.0-16.0); LYMPHOCYTES % (AUTO) 13.9 % (21-51); MEAN CORPUSCULAR HGB CONC 32.4 % (33.0-36.5); MEAN CORPUSCULAR VOLUME 92.6 FL (78-98); MEAN PLATELET VOLUME 8.9 FL (7.4-10.4); MONOCYTES # (AUTO) 0.6 X10'3 (0-0.9); NEUTROPHILS % (AUTO) 72.6 % (42-75); PLATELET COUNT 261 X10'3 (140-440); RED BLOOD COUNT 3.09 X10'6 (4.20-5.60); RED CELL DISTRIBUTION WIDTH 15.1 % (11.5-14.5); WHITE BLOOD COUNT 6.9 X10'3 (4.5-11.0)
[2017-05-10 06:48] LABS: ALBUMIN 2.4 G/DL (3.4-5.0); ANION GAP 10 (8-16); BLOOD UREA NITROGEN 40 MG/DL (7-18); BUN/CREATININE RATIO 22.7 (6.6-38.0); CALCIUM 8.2 MG/DL (8.5-10.1); CHLORIDE 106 MMOL/L (99-107); CREATININE 1.76 MG/DL (0.40-0.90); GLUCOSE 89 MG/DL (70-104); POTASSIUM 4.3 MMOL/L (3.5-5.1); SODIUM 143 MMOL/L (135-145); TOTAL CARBON DIOXIDE 27.5 MMOL/L (24-32); eGFR 28 ML/MIN
[2017-05-10] MEDS: carVEDilol 3.125mg tablet PO SCH ×2 (08:03→19:16)
[2017-05-10] MEDS: lactobacillus rhamnosus 10,000 MMU CELLS/CAPSULE PO SCH ×2 (08:03→17:30)
[2017-05-10] MEDS: FLUoxetine 20mg capsule PO SCH (08:04)
[2017-05-10] MEDS: furosemide 40mg/4ml inj IV SCH ×2 (08:04→19:16)
[2017-05-10] MEDS: NUT.TX.GLUC.INTOLER,LAC-FR,REG (BOOST GLUCOSE CONTROL) 237 ML PO SCH ×3 (08:04→17:32)
[2017-05-10] MEDS: nystatin 15 GM powder TP SCH ×3 (08:04→21:03)
[2017-05-10] MEDS: potassium Cl 20 mEq SR tablet PO SCH ×2 (08:10→17:30)
[2017-05-10] MEDS: budesonide 0.5mg/2ml UD nebule IH SCH ×2 (09:30→20:06)
[2017-05-10] MEDS: ipratropium 0.5 MG/2.5ML nebule IH PRN ×2 (09:31→20:06)
[2017-05-10 11:00] VITALS: BP 163/48
[2017-05-10] MEDS: CLONAZEPAM 0.25 MG oral disentigrating tablet (ODT) PO SCH ×3 (11:10→21:02)
[2017-05-10 15:00] VITALS: BP 162/48
[2017-05-10] MEDS: acetaminophen 325mg tablet PO PRN (17:31)
[2017-05-10] MEDS ORDERED: hyDRALAzine 10mg tablet PO PRN (18:35)
[2017-05-10 20:00] VITALS: BP 158/56
[2017-05-10] MEDS: insulin glargine (Lantus) pen - multi-dose SQ SCH (21:00)
[2017-05-11] VITALS (7 sets, daily range): BP systolic 136–164; BP diastolic 36–45
[2017-05-11] MEDS: gabapentin 100mg capsule PO SCH ×3 (00:45→18:00)
[2017-05-11] MEDS: budesonide 0.5mg/2ml UD nebule IH SCH ×2 (07:14→20:15)
[2017-05-11] MEDS: ipratropium 0.5 MG/2.5ML nebule IH PRN ×2 (07:14→20:14)
[2017-05-11 07:28] LABS: BASOPHILS % (AUTO) 0.5 % (0-1); EOSINOPHILS # (AUTO) 0.3 X10'3 (0-0.9); EOSINOPHILS % (AUTO) 5.1 % (0-6); HEMATOCRIT 28.1 % (35.0-45.0); HEMOGLOBIN 9.1 g/dl (12.0-16.0); LYMPHOCYTES % (AUTO) 16.6 % (21-51); MEAN CORPUSCULAR HEMOGLOBIN 29.8 PG (27.0-31.0); MEAN CORPUSCULAR HGB CONC 32.5 % (33.0-36.5); MEAN CORPUSCULAR VOLUME 91.7 FL (78-98); MEAN PLATELET VOLUME 8.8 FL (7.4-10.4); MONOCYTES # (AUTO) 0.6 X10'3 (0-0.9); MONOCYTES % (AUTO) 10.4 % (2-12); NEUTROPHILS # (AUTO) 4.1 X10'3 (1.8-7.7); NEUTROPHILS % (AUTO) 67.4 % (42-75); PLATELET COUNT 239 X10'3 (140-440); RED BLOOD COUNT 3.06 X10'6 (4.20-5.60); RED CELL DISTRIBUTION WIDTH 15.7 % (11.5-14.5); WHITE BLOOD COUNT 6.1 X10'3 (4.5-11.0)
[2017-05-11 07:43] LABS: ALBUMIN 2.3 G/DL (3.4-5.0); ANION GAP 7 (8-16); BLOOD UREA NITROGEN 45 MG/DL (7-18); BUN/CREATININE RATIO 25.6 (6.6-38.0); CALCIUM 8.1 MG/DL (8.5-10.1); CHLORIDE 105 MMOL/L (99-107); CREATININE 1.76 MG/DL (0.40-0.90); GLUCOSE 100 MG/DL (70-104); MAGNESIUM 1.9 MG/DL (1.5-2.4); POTASSIUM 4.6 MMOL/L (3.5-5.1); SODIUM 143 MMOL/L (135-145); TOTAL CARBON DIOXIDE 30.8 MMOL/L (24-32); eGFR 28 ML/MIN
[2017-05-11] MEDS: NUT.TX.GLUC.INTOLER,LAC-FR,REG (BOOST GLUCOSE CONTROL) 237 ML PO SCH ×3 (08:00→18:01)
[2017-05-11] MEDS: FLUoxetine 20mg capsule PO SCH (09:40)
[2017-05-11] MEDS: CLONAZEPAM 0.25 MG oral disentigrating tablet (ODT) PO SCH ×3 (09:40→21:10)
[2017-05-11] MEDS: lactobacillus rhamnosus 10,000 MMU CELLS/CAPSULE PO SCH ×2 (09:40→18:00)
[2017-05-11] MEDS: furosemide 40mg/4ml inj IV SCH ×2 (09:41→21:12)
[2017-05-11] MEDS: carVEDilol 3.125mg tablet PO SCH ×2 (09:41→19:00)
[2017-05-11] MEDS: potassium Cl 20 mEq SR tablet PO SCH ×2 (09:41→18:00)
[2017-05-11] MEDS: nystatin 15 GM powder TP SCH ×3 (09:42→21:10)
[2017-05-11] MEDS: acetaminophen 325mg tablet PO PRN (18:11)
[2017-05-11] MEDS: insulin glargine (Lantus) pen - multi-dose SQ SCH (19:01)
[2017-05-12] MEDS: gabapentin 100mg capsule PO SCH ×4 (00:19→23:18)
[2017-05-12 02:00] VITALS: BP 146/37
[2017-05-12 06:00] VITALS: BP 143/33
[2017-05-12] MEDS: carVEDilol 3.125mg tablet PO SCH ×2 (08:00→21:03)
[2017-05-12] MEDS: potassium Cl 20 mEq SR tablet PO SCH ×2 (08:10→17:50)
[2017-05-12] MEDS: FLUoxetine 20mg capsule PO SCH (08:10)
[2017-05-12] MEDS: CLONAZEPAM 0.25 MG oral disentigrating tablet (ODT) PO SCH ×3 (08:10→21:03)
[2017-05-12] MEDS: NUT.TX.GLUC.INTOLER,LAC-FR,REG (BOOST GLUCOSE CONTROL) 237 ML PO SCH ×3 (08:10→18:41)
[2017-05-12] MEDS: lactobacillus rhamnosus 10,000 MMU CELLS/CAPSULE PO SCH ×2 (08:10→17:50)
[2017-05-12] MEDS: nystatin 15 GM powder TP SCH ×3 (08:10→20:58)
[2017-05-12] MEDS: furosemide 40mg/4ml inj IV SCH ×2 (08:10→20:59)
[2017-05-12] MEDS: budesonide 0.5mg/2ml UD nebule IH SCH ×2 (09:57→21:19)
[2017-05-12 11:00] VITALS: BP 144/43
[2017-05-12 15:00] VITALS: BP 158/41
[2017-05-12 18:00] VITALS: BP 187/51
[2017-05-12] MEDS: insulin glargine (Lantus) pen - multi-dose SQ SCH (21:00)
[2017-05-12 22:00] VITALS: BP 181/60
[2017-05-12] MEDS ORDERED: magnesium citrate 296ml oral solution PO ONE (22:35)
[2017-05-13 00:52] VITALS: BP 173/55
[2017-05-13] MEDS ORDERED: magnesium citrate 296ml oral solution PO ONE (01:50)
[2017-05-13 02:00] VITALS: BP 165/57
[2017-05-13 06:30] VITALS: BP 153/45
[2017-05-13 06:48] LABS: BASOPHILS % (AUTO) 0.3 % (0-1); EOSINOPHILS # (AUTO) 0.3 X10'3 (0-0.9); EOSINOPHILS % (AUTO) 3.6 % (0-6); HEMATOCRIT 29.3 % (35.0-45.0); HEMOGLOBIN 9.7 g/dl (12.0-16.0); LYMPHOCYTES # (AUTO) 0.9 X10'3 (1.1-4.8); LYMPHOCYTES % (AUTO) 9.5 % (21-51); MEAN CORPUSCULAR HEMOGLOBIN 30.5 PG (27.0-31.0); MEAN CORPUSCULAR HGB CONC 33.1 % (33.0-36.5); MEAN CORPUSCULAR VOLUME 92.2 FL (78-98); MEAN PLATELET VOLUME 8.7 FL (7.4-10.4); MONOCYTES # (AUTO) 0.7 X10'3 (0-0.9); MONOCYTES % (AUTO) 7.1 % (2-12); NEUTROPHILS # (AUTO) 7.4 X10'3 (1.8-7.7); NEUTROPHILS % (AUTO) 79.5 % (42-75); PLATELET COUNT 268 X10'3 (140-440); RED BLOOD COUNT 3.17 X10'6 (4.20-5.60); RED CELL DISTRIBUTION WIDTH 15.7 % (11.5-14.5); WHITE BLOOD COUNT 9.4 X10'3 (4.5-11.0)
[2017-05-13 06:56] LABS: ALBUMIN 2.7 G/DL (3.4-5.0); ANION GAP 5 (8-16); BLOOD UREA NITROGEN 51 MG/DL (7-18); BUN/CREATININE RATIO 35.7 (6.6-38.0); CALCIUM 8.4 MG/DL (8.5-10.1); CHLORIDE 104 MMOL/L (99-107); CREATININE 1.43 MG/DL (0.40-0.90); GLUCOSE 145 MG/DL (70-104); POTASSIUM 5.3 MMOL/L (3.5-5.1); SODIUM 143 MMOL/L (135-145); eGFR 36 ML/MIN
[2017-05-13] MEDS: potassium Cl 20 mEq SR tablet PO SCH ×2 (07:11→17:00)
[2017-05-13] MEDS: lactobacillus rhamnosus 10,000 MMU CELLS/CAPSULE PO SCH ×2 (07:11→17:29)
[2017-05-13] MEDS: nystatin 15 GM powder TP SCH ×2 (07:12→13:46)
[2017-05-13] MEDS: FLUoxetine 20mg capsule PO SCH (07:12)
[2017-05-13] MEDS: CLONAZEPAM 0.25 MG oral disentigrating tablet (ODT) PO SCH ×2 (07:12→12:06)
[2017-05-13] MEDS: furosemide 40mg/4ml inj IV SCH (07:12)
[2017-05-13] MEDS: carVEDilol 3.125mg tablet PO SCH (07:12)
[2017-05-13] MEDS: gabapentin 100mg capsule PO SCH ×2 (07:12→17:29)
[2017-05-13] MEDS: NUT.TX.GLUC.INTOLER,LAC-FR,REG (BOOST GLUCOSE CONTROL) 237 ML PO SCH ×2 (08:00→13:46)
[2017-05-13] MEDS: budesonide 0.5mg/2ml UD nebule IH SCH (08:29)
[2017-05-13 09:00] VITALS: BP 153/54
[2017-05-13 11:30] VITALS: BP 135/43
[2017-05-13] MEDS ORDERED: sodium polystyrene sulfonate 15gm/60ml oral suspension PO ONE (12:55)
[2017-05-13 16:00] VITALS: BP 150/42
[2017-05-13] MEDS ORDERED: [UNRECOGNIZED DRUG - CODE] PO (16:00)
[2017-05-13] MEDS ORDERED: COR3.125T PO (16:00)
[2017-05-13] MEDS ORDERED: BUDE0.5A3 IH (16:00)
[2017-05-13] MEDS ORDERED: FURO-149 PO (16:00)
[2017-05-13] MEDS ORDERED: NYSPWD TP (16:00)
[2017-05-13] MEDS ORDERED: CLON0.252 PO (16:00)
[2017-05-13] MEDS ORDERED: ATR0.5NEB IH (16:00)
== END 2017-05-13 18:40 | disposition home health service (06) | DRG 871 ==
LOC: ER 10:42 → ED HOLD 16:15 → PCU 3S 17:41 → CMPBEDREQ 19:34
PROVIDERS: ADMIT Family Medicine; ATTEND Internal Medicine
PROC: 5A09457 Assistance with Respiratory Ventilation, 24-96 Consecutive Hours, Continuous Positive Airway Pressure (ICD-10-PCS; principal; 2017-05-01)
PROC: BW211ZZ Computerized Tomography (CT Scan) of Abdomen and Pelvis using Low Osmolar Contrast (ICD-10-PCS; 2017-05-01)
PROC: BW241ZZ Computerized Tomography (CT Scan) of Chest and Abdomen using Low Osmolar Contrast (ICD-10-PCS; 2017-05-03)
PROC: 5A09357 Assistance with Respiratory Ventilation, Less than 24 Consecutive Hours, Continuous Positive Airway Pressure (ICD-10-PCS; 2017-05-05)
DX: A41.9 Sepsis, unspecified organism (principal); G93.41 Metabolic encephalopathy; J96.21 Acute and chronic respiratory failure with hypoxia; E87.4 Mixed disorder of acid-base balance; I50.33 Acute on chronic diastolic (congestive) heart failure; J81.1 Chronic pulmonary edema; J96.22 Acute and chronic respiratory failure with hypercapnia; N17.9 Acute kidney failure, unspecified; I47.1 Supraventricular tachycardia; Z68.42 Body mass index [BMI] 45.0-49.9, adult; I13.0 Hypertensive heart and chronic kidney disease with heart failure and stage 1 through stage 4 chronic kidney disease, or unspecified chronic kidney disease; N39.0 Urinary tract infection, site not specified; E87.0 Hyperosmolality and hypernatremia; E11.22 Type 2 diabetes mellitus with diabetic chronic kidney disease; K59.00 Constipation, unspecified; E66.01 Morbid (severe) obesity due to excess calories; E87.5 Hyperkalemia; E78.5 Hyperlipidemia, unspecified; I35.8 Other nonrheumatic aortic valve disorders; M19.90 Unspecified osteoarthritis, unspecified site; M48.00 Spinal stenosis, site unspecified; F41.9 Anxiety disorder, unspecified; N18.3 Chronic kidney disease, stage 3 (moderate); G47.33 Obstructive sleep apnea (adult) (pediatric); I25.10 Atherosclerotic heart disease of native coronary artery without angina pectoris; I35.1 Nonrheumatic aortic (valve) insufficiency; J44.9 Chronic obstructive pulmonary disease, unspecified; Z66 Do not resuscitate; Z51.5 Encounter for palliative care; Z95.5 Presence of coronary angioplasty implant and graft; Z98.84 Bariatric surgery status; Z79.899 Other long term (current) drug therapy; Z87.11 Personal history of peptic ulcer disease; Z87.891 Personal history of nicotine dependence; Z82.49 Family history of ischemic heart disease and other diseases of the circulatory system; Z82.5 Family history of asthma and other chronic lower respiratory diseases
CPT/HCPCS: 36415; 36600; 70450; 71045; 71250; 74176; 80048; 80053; 81001; 82570; 82803; 82948; 83036; 83605; 83690; 83735; 83880; 84132; 84300; 84443; 84484; 85018; 85025; 87070; 87077; 87088; 87186; 87207; 93005; 93306; 94010; 94640; 94660; 94760; 96374; 97161; 97530; 99285; A4315; A6213; A6223; A6446; A6449; J0295; J0610; J1815; J1940; J1956; J2270; J2405; J2543; J2920; J3490; J7030; J7042; J7070; J7120; J7626; Q9963

== ENCOUNTER 2017-05-01 08:00 | Day surgery (SDC) | payer MEDICARE, OTHER ==
[~2017-05-01 08:00] MED LIST changes: +AMLO5TAB PO; -AMLO5TAB4 PO; -AMLODIPINE BESYLATE 5 MG TAB; +GABA-530 PO; -GABA100C PO; -GABAPENTIN 100 MG; -GABAPENTIN 100 MG CAPSULE; -NITR100C6 PO; -OMEPRAZOLE DR 20 MG CAPSULE; -OXYCODONE 10 MG; -VIT D2 1.25 MG (50,000 UNIT); +calcium gluconate 0.46mEq/mL (100mg/mL) inj IV ONE
== END 2017-05-01 14:40 | disposition home or self-care (01) ==
LOC: SSTAY O 08:00
PROVIDERS: ATTEND Internal Medicine Cardiovascular Disease
DX: R94.39 Abnormal result of other cardiovascular function study (principal)
CPT/HCPCS: J0610

== ENCOUNTER 2018-06-28 21:31 | Inpatient (IN) | payer MEDICARE, OTHER ==
[~2018-06-28] VITALS: Ht 154.9 cm; Wt 100.0 kg
[~2018-06-28 21:31] MED LIST changes: +ATR0.5NEB IH; +BUDE0.5A3 IH; +CLON0.252 PO; +COR3.125T PO; -FLUO-1; +FURO-149 PO; +NYSPWD TP; -OXYC10TA47 PO; +[UNRECOGNIZED DRUG - CODE] PO; -calcium gluconate 0.46mEq/mL (100mg/mL) inj IV ONE
[2018-06-28] MEDS ORDERED: NITR50CA4 PO (22:43)
[2018-06-28] MEDS ORDERED: ASPI-1265 PO (22:43)
[2018-06-28] MEDS ORDERED: AMOX-580 PO (22:43)
[2018-06-28 22:45] LABS: BASOPHILS # (AUTO) 0.1 X10'3 (0-0.2); BASOPHILS % (AUTO) 0.9 % (0-1); EOSINOPHILS # (AUTO) 0.2 X10'3 (0-0.9); EOSINOPHILS % (AUTO) 1.6 % (0-6); HEMATOCRIT 28.6 % (35.0-45.0); HEMOGLOBIN 9.4 g/dl (12.0-16.0); LYMPHOCYTES # (AUTO) 0.8 X10'3 (1.1-4.8); LYMPHOCYTES % (AUTO) 8.5 % (21-51); MEAN CORPUSCULAR HEMOGLOBIN 30.1 PG (27.0-31.0); MEAN CORPUSCULAR HGB CONC 32.9 g/dL (33.0-36.5); MEAN CORPUSCULAR VOLUME 91.3 FL (78-98); MEAN PLATELET VOLUME 8.3 FL (7.4-10.4); MONOCYTES # (AUTO) 0.4 X10'3 (0-0.9); MONOCYTES % (AUTO) 4.5 % (2-12); NEUTROPHILS # (AUTO) 8.4 X10'3 (1.8-7.7); NEUTROPHILS % (AUTO) 84.5 % (42-75); PLATELET COUNT 377 X10'3 (140-440); RED BLOOD COUNT 3.13 X10'6 (4.20-5.60); RED CELL DISTRIBUTION WIDTH 14.2 % (11.5-14.5); WHITE BLOOD COUNT 9.9 X10'3 (4.5-11.0)
[2018-06-28 22:45] LABS: PARTIAL THROMBOPLASTIN TIME 32 SECONDS (22-32)
[2018-06-28 22:52] LABS: ANION GAP 12 (8-16); BILIRUBIN,TOTAL 0.3 MG/DL (0.1-1.0); BLOOD UREA NITROGEN 37 MG/DL (7-18); BUN/CREATININE RATIO 30.6 (6.6-38.0); CALCIUM 8.5 MG/DL (8.5-10.1); CHLORIDE 102 MMOL/L (99-107); CREATININE 1.21 MG/DL (0.40-0.90); GLUCOSE 130 MG/DL (70-104); POTASSIUM 4.2 MMOL/L (3.5-5.1); SODIUM 140 MMOL/L (135-145); TOTAL CARBON DIOXIDE 26.3 MMOL/L (24-32); TOTAL PROTEIN 6.5 G/DL (6.4-8.2); eGFR 43 ML/MIN
[2018-06-28 22:53] LABS: ALANINE AMINOTRANSFERASE 11 U/L (12-78); ALBUMIN 2.7 G/DL (3.4-5.0); ALBUMIN/GLOBULIN RATIO 0.7 (1.1-1.5); ALKALINE PHOSPHATASE 85 IU/L (46-116); ASPARTATE AMINO TRANSFERASE 12 U/L (10-37)
[2018-06-28 22:55] LABS: ABG BASE EXCESS 1.9 mmol/L (-2.0-3.0); ABG HCO3 27.2 mmol/L (22.0-26.0); ABG OXYGEN SATURATION 97.4 % (95-98); ABG PCO2 (T) 45.8 mmHg (32.0-45.0); ABG PH (T) 7.391 (7.350-7.450); ALLEN'S TEST Positive; FCOHb 0.6 % (0.5-1.5); FMetHb 0.1 % (0.3-1.12); FO2Hb 96.7 % (94-100); MINUTE VOLUME 10 L/min; PATIENT TEMPERATURE 36.9; RESPIRATORY RATE 14 b/min; RESPIRATORY RATE (OBSERVED) 21 b/min; TOTAL HEMOGLOBIN 10.1 G/dl (12.0-16.0)
[2018-06-29] MEDS ORDERED: magnesium Cl slow-release 64mg tablet PO PRN (01:05)
[2018-06-29] MEDS ORDERED: magnesium 4gm in 100ml NS 100 ML IV PRN (01:05)
[2018-06-29] MEDS ORDERED: HYDROcodone/acetaminophen 10/325mg tab PO PRN (01:05)
[2018-06-29] MEDS ORDERED: magnesium hydroxide 30ml (MOM) UD suspension PO PRN (01:05)
[2018-06-29] MEDS ORDERED: magnesium 2GM in 50ml NS 50 ML IV PRN (01:05)
[2018-06-29] MEDS ORDERED: potassium Cl 40MEQ/NS 500ml 500 ML IV PRN ×2 (01:05)
[2018-06-29] MEDS ORDERED: ondansetron/PF 4mg/2ml inj IV PRN (01:05)
[2018-06-29] MEDS ORDERED: potassium Cl 20 mEq SR tablet PO PRN ×2 (01:05)
[2018-06-29] MEDS ORDERED: mag hydrox/Alum hydrox/simeth 30ml oral suspension PO PRN (01:05)
[2018-06-29] MEDS ORDERED: acetaminophen 325mg tablet PO PRN ×2 (01:05)
--- NOTE | 2018-06-29 01:29 | NUR ---
PT HAVING INCREASED RESPIRATORY DISTRESS AND SHORTNESS OF BREATH DR MAS NOTIFIED NEW ORDERS WRITTEN AND RESPIRATORY NOTIFIED
[2018-06-29] MEDS ORDERED: LORazepam 2 mg/ml vial IV ONE (01:30)
[2018-06-29] MEDS: ipratropium 0.5 MG/2.5ML nebule IH PRN (01:39)
[2018-06-29] MEDS: albuterol 2.5 MG/3 ML nebule NEB PRN (01:39)
--- NOTE | 2018-06-29 02:50 | NUR ---
PLACED ON AIRBED FOR PT COMFORT
--- NOTE | 2018-06-29 07:20 | NUR ---
Pt. to 3021 from Ed on bipap. Pt. placed on nasal canula per pt. and family request as pt. is "not in any distress" per family. Sp02 100% on nasal canula. Daughters at bedside. Pt. has skin issues with multiple open areas. Will document with photos per policy time-willing. Addendum: 06/29/18 at 0907 by Sofiya Arredondo RN Amended: Links added.
[2018-06-29 07:30] VITALS: BP 134/36
[2018-06-29] MEDS: budesonide 0.5mg/2ml UD nebule IH SCH ×3 (07:58→20:56)
[2018-06-29] MEDS: CLONAZEPAM 0.25 MG oral disentigrating tablet (ODT) PO SCH ×4 (08:00→20:31)
[2018-06-29] MEDS ORDERED: furosemide 10 MG/1 ML 10ml inj IV ONE (08:00)
[2018-06-29] MEDS: K and/or MAG REPLACEMENT MC SCH (08:00)
[2018-06-29] MEDS: aspirin 81mg tab.chew PO SCH (08:01)
[2018-06-29] MEDS: FLUoxetine 20mg capsule PO SCH (08:01)
[2018-06-29] MEDS: pantoprazole 40mg Tablet.DR PO SCH (08:01)
[2018-06-29] MEDS: amLODIPine 5mg tablet PO SCH (08:01)
[2018-06-29] MEDS: gabapentin 100mg capsule PO SCH ×3 (08:01→23:11)
[2018-06-29] MEDS: enoxaparin 40mg/0.4ml syringe SUBCUT SCH (08:03)
[2018-06-29] MEDS: carvedilol 6.25mg tablet PO SCH ×2 (08:04→20:00)
[2018-06-29 10:28] LABS: HEMOGLOBIN A1C 5.9 % (4.5-6.2)
[2018-06-29 11:00] VITALS: BP 110/61
--- NOTE | 2018-06-29 12:23 | NUR ---
Unable to locate [employer] AG to place in pt's folds to wick away moisture. Skin care provided to skin folds, pannus, under breasts. Family requesting a barrier be placed to pt's moist areas. Pillow cases uses for now until the proper skin care recommendations are placed/available.
--- NOTE | 2018-06-29 12:42 | NUR ---
Dr. Verduzco in to speak with patient's dtr. Kassidy per family's request. DNR band placed on pt's wrist.
[2018-06-29 15:00] VITALS: BP 120/41
[2018-06-29] MEDS ORDERED: furosemide 40mg/4ml inj IV SCH (16:00)
[2018-06-29 18:00] VITALS: BP 130/38
--- NOTE | 2018-06-29 18:25 | NUR ---
Problems reprioritized. Patient report given, questions answered & plan of care reviewed with Rea/Varinder RNs.
--- NOTE | 2018-06-29 18:39 | NUR ---
Patient in room PCU 3021. I have received report from Sofiya OLSON and had the opportunity to ask questions and assume patient care.
--- NOTE | 2018-06-29 18:56 | NUR ---
Wound consult: Pt admit w/ SOB and CHF exacerbation recently lost here 2 days prior of 60 years and anxiety led to SOB per MD note. Pt has open beau to R breast and sacrum. Pt PO 25% heart healthy meals. Pt seen by RD for written/verbal high protein ed; RD contact information provided. PT has specific food preferences and does agrees to ensure enlive chocolate/strawberry TIDWM; MD and dietary notified. Preferences as follows: chopped meats w/ gravy TID, soft to chew foods r/t weak teeth, small fruit bowel w/ breakfast, dislikes peas, carrots, rice pilaf, chicken, and turkey. Pt reports liking roast beef, pork, fish, and eggs. LITA d/w dietary. No BM yet admit today. Will continue to monitor for additional protein needs. Rec: 1. continue heart healthy diet 2. chocolate/strawberry ensure enlive TIDWM 3. MVI for wounds 4. wt per rx Addendum: 06/29/18 at [address] Amended: Links added.
[2018-06-29] MEDS: HYDROcodone/acetaminophen 5mg/325mg tablet PO PRN (20:29)
--- NOTE | 2018-06-29 20:44 | NUR ---
Patient's HR was 58-59. Held Coreg
[2018-06-29] MEDS ORDERED: temazepam 15mg capsule PO PRN (21:00)
[2018-06-29 22:00] VITALS: BP 138/44
--- NOTE | 2018-06-29 22:32 | NUR ---
IV infiltrated. Several nurses tried to start a new IV, all unsuccessful. Called Rakesh Diaz with no IV. Consult PICC nurse on day shift, switched IV lasix to PO
[2018-06-29] MEDS: furosemide 40mg tablet PO SCH (23:11)
[2018-06-30] VITALS (7 sets, daily range): BP systolic 107–141; BP diastolic 33–43
[2018-06-30 06:27] LABS: BASOPHILS # (AUTO) 0.1 X10'3 (0-0.2); EOSINOPHILS # (AUTO) 0.2 X10'3 (0-0.9); EOSINOPHILS % (AUTO) 3.4 % (0-6); HEMATOCRIT 27.3 % (35.0-45.0); HEMOGLOBIN 8.8 g/dl (12.0-16.0); LYMPHOCYTES # (AUTO) 1.3 X10'3 (1.1-4.8); LYMPHOCYTES % (AUTO) 17.8 % (21-51); MEAN CORPUSCULAR HEMOGLOBIN 29.9 PG (27.0-31.0); MEAN CORPUSCULAR HGB CONC 32.4 g/dL (33.0-36.5); MEAN CORPUSCULAR VOLUME 92.4 FL (78-98); MEAN PLATELET VOLUME 8.3 FL (7.4-10.4); MONOCYTES # (AUTO) 0.6 X10'3 (0-0.9); MONOCYTES % (AUTO) 7.9 % (2-12); NEUTROPHILS # (AUTO) 5.2 X10'3 (1.8-7.7); NEUTROPHILS % (AUTO) 69.9 % (42-75); PLATELET COUNT 333 X10'3 (140-440); RED BLOOD COUNT 2.96 X10'6 (4.20-5.60); RED CELL DISTRIBUTION WIDTH 14.2 % (11.5-14.5); WHITE BLOOD COUNT 7.4 X10'3 (4.5-11.0)
--- NOTE | 2018-06-30 06:34 | NUR ---
Problems reprioritized. Patient report given, questions answered & plan of care reviewed with rhonda.
--- NOTE | 2018-06-30 06:40 | NUR ---
Patient in room PCU 3021. I have received report from Michi OLSON and had the opportunity to ask questions and assume patient care.
[2018-06-30 06:44] LABS: ALBUMIN 2.6 G/DL (3.4-5.0); ANION GAP 7 (8-16); BLOOD UREA NITROGEN 41 MG/DL (7-18); BUN/CREATININE RATIO 30.8 (6.6-38.0); CALCIUM 8.4 MG/DL (8.5-10.1); CHLORIDE 101 MMOL/L (99-107); CREATININE 1.33 MG/DL (0.40-0.90); GLUCOSE 98 MG/DL (70-104); MAGNESIUM 2.2 MG/DL (1.5-2.4); POTASSIUM 4.4 MMOL/L (3.5-5.1); SODIUM 137 MMOL/L (135-145); TOTAL CARBON DIOXIDE 29.2 MMOL/L (24-32); eGFR 39 ML/MIN
[2018-06-30] MEDS: K and/or MAG REPLACEMENT MC SCH (08:00)
[2018-06-30] MEDS ORDERED: lactose-reduced food (Ensure Enlive) - 237ml bottle PO SCH (08:00)
[2018-06-30] MEDS: FLUoxetine 20mg capsule PO SCH (08:07)
[2018-06-30] MEDS: enoxaparin 40mg/0.4ml syringe SUBCUT SCH (08:07)
[2018-06-30] MEDS: amLODIPine 5mg tablet PO SCH (08:07)
[2018-06-30] MEDS: furosemide 40mg tablet PO SCH ×3 (08:08→23:50)
[2018-06-30] MEDS: aspirin 81mg tab.chew PO SCH (08:08)
[2018-06-30] MEDS: pantoprazole 40mg Tablet.DR PO SCH (08:08)
[2018-06-30] MEDS: carvedilol 6.25mg tablet PO SCH ×2 (08:08→20:00)
[2018-06-30] MEDS: gabapentin 100mg capsule PO SCH ×3 (08:08→23:50)
[2018-06-30] MEDS: CLONAZEPAM 0.25 MG oral disentigrating tablet (ODT) PO SCH ×3 (08:10→21:50)
[2018-06-30] MEDS: BUDESONIDE 0.25 MG/2 ML AMPUL.NEB IH SCH ×2 (08:26→19:59)
--- NOTE | 2018-06-30 18:26 | NUR ---
Problems reprioritized. Patient report given, questions answered & plan of care reviewed with Michi OLSON.
--- NOTE | 2018-06-30 18:32 | NUR ---
Patient in room PCU 3021. I have received report from Ceci and had the opportunity to ask questions and assume patient care.
[2018-06-30] MEDS: HYDROcodone/acetaminophen 5mg/325mg tablet PO PRN (21:52)
[2018-07-01 02:00] VITALS: BP 141/43
[2018-07-01 05:09] LABS: BASOPHILS # (AUTO) 0.1 X10'3 (0-0.2); BASOPHILS % (AUTO) 0.7 % (0-1); EOSINOPHILS # (AUTO) 0.3 X10'3 (0-0.9); EOSINOPHILS % (AUTO) 2.9 % (0-6); HEMATOCRIT 26.4 % (35.0-45.0); HEMOGLOBIN 8.8 g/dl (12.0-16.0); LYMPHOCYTES # (AUTO) 1.4 X10'3 (1.1-4.8); LYMPHOCYTES % (AUTO) 14.8 % (21-51); MEAN CORPUSCULAR HEMOGLOBIN 30.4 PG (27.0-31.0); MEAN CORPUSCULAR HGB CONC 33.3 g/dL (33.0-36.5); MEAN CORPUSCULAR VOLUME 91.5 FL (78-98); MEAN PLATELET VOLUME 8.2 FL (7.4-10.4); MONOCYTES # (AUTO) 0.8 X10'3 (0-0.9); MONOCYTES % (AUTO) 8.3 % (2-12); NEUTROPHILS # (AUTO) 6.7 X10'3 (1.8-7.7); NEUTROPHILS % (AUTO) 73.3 % (42-75); PLATELET COUNT 321 X10'3 (140-440); RED BLOOD COUNT 2.88 X10'6 (4.20-5.60); RED CELL DISTRIBUTION WIDTH 14.1 % (11.5-14.5); WHITE BLOOD COUNT 9.2 X10'3 (4.5-11.0)
[2018-07-01 05:17] LABS: ALBUMIN 2.7 G/DL (3.4-5.0); ANION GAP 5 (8-16); BLOOD UREA NITROGEN 51 MG/DL (7-18); BUN/CREATININE RATIO 36.4 (6.6-38.0); CALCIUM 8.4 MG/DL (8.5-10.1); CHLORIDE 99 MMOL/L (99-107); GLUCOSE 121 MG/DL (70-104); MAGNESIUM 2.2 MG/DL (1.5-2.4); POTASSIUM 4.3 MMOL/L (3.5-5.1); SODIUM 134 MMOL/L (135-145); eGFR 36 ML/MIN
--- NOTE | 2018-07-01 06:14 | NUR ---
Problems reprioritized. Patient report given, questions answered & plan of care reviewed with Ceci.
--- NOTE | 2018-07-01 06:25 | NUR ---
Patient in room PCU 3021. I have received report from Michi OLSON and had the opportunity to ask questions and assume patient care.
[2018-07-01 06:30] VITALS: BP 134/42
[2018-07-01] MEDS: K and/or MAG REPLACEMENT MC SCH (08:00)
[2018-07-01] MEDS: gabapentin 100mg capsule PO SCH ×2 (08:18→16:02)
[2018-07-01] MEDS: aspirin 81mg tab.chew PO SCH (08:18)
[2018-07-01] MEDS: pantoprazole 40mg Tablet.DR PO SCH (08:18)
[2018-07-01] MEDS: FLUoxetine 20mg capsule PO SCH (08:18)
[2018-07-01] MEDS: carvedilol 6.25mg tablet PO SCH ×2 (08:18→20:50)
[2018-07-01] MEDS: enoxaparin 40mg/0.4ml syringe SUBCUT SCH (08:18)
[2018-07-01] MEDS: amLODIPine 5mg tablet PO SCH (08:18)
[2018-07-01] MEDS: CLONAZEPAM 0.25 MG oral disentigrating tablet (ODT) PO SCH ×3 (08:19→20:51)
[2018-07-01] MEDS: furosemide 40mg tablet PO SCH (08:19)
[2018-07-01] MEDS: BUDESONIDE 0.25 MG/2 ML AMPUL.NEB IH SCH ×2 (09:45→20:38)
[2018-07-01] MEDS: ipratropium 0.5 MG/2.5ML nebule IH PRN (09:45)
[2018-07-01 11:00] VITALS: BP 118/97
[2018-07-01 15:00] VITALS: BP 127/36
[2018-07-01 18:00] VITALS: BP 143/52
--- NOTE | 2018-07-01 18:31 | NUR ---
Problems reprioritized. Patient report given, questions answered & plan of care reviewed with Maggie OLSON.
--- NOTE | 2018-07-01 18:48 | NUR ---
Patient in room PCU 3021. I have received report from Ceci OLSON and had the opportunity to ask questions and assume patient care.
[2018-07-01] MEDS: albuterol 2.5 MG/3 ML nebule NEB PRN (20:38)
[2018-07-01] MEDS: furosemide 40mg/4ml inj IV SCH (20:50)
[2018-07-01 22:00] VITALS: BP 135/43
[2018-07-02] MEDS: gabapentin 100mg capsule PO SCH ×2 (00:27→08:56)
[2018-07-02 02:00] VITALS: BP 129/39
[2018-07-02 05:55] LABS: BASOPHILS # (AUTO) 0.1 X10'3 (0-0.2); BASOPHILS % (AUTO) 0.7 % (0-1); EOSINOPHILS # (AUTO) 0.3 X10'3 (0-0.9); EOSINOPHILS % (AUTO) 2.6 % (0-6); HEMATOCRIT 27.5 % (35.0-45.0); HEMOGLOBIN 9.2 g/dl (12.0-16.0); LYMPHOCYTES % (AUTO) 9.3 % (21-51); MEAN CORPUSCULAR HEMOGLOBIN 30.4 PG (27.0-31.0); MEAN CORPUSCULAR HGB CONC 33.5 g/dL (33.0-36.5); MEAN CORPUSCULAR VOLUME 90.9 FL (78-98); MEAN PLATELET VOLUME 8.4 FL (7.4-10.4); MONOCYTES # (AUTO) 0.8 X10'3 (0-0.9); MONOCYTES % (AUTO) 7.5 % (2-12); NEUTROPHILS # (AUTO) 8.6 X10'3 (1.8-7.7); NEUTROPHILS % (AUTO) 79.9 % (42-75); PLATELET COUNT 302 X10'3 (140-440); RED BLOOD COUNT 3.03 X10'6 (4.20-5.60); WHITE BLOOD COUNT 10.7 X10'3 (4.5-11.0)
[2018-07-02 06:19] LABS: ALBUMIN 2.7 G/DL (3.4-5.0); ANION GAP 8 (8-16); BLOOD UREA NITROGEN 63 MG/DL (7-18); BUN/CREATININE RATIO 43.2 (6.6-38.0); CALCIUM 8.8 MG/DL (8.5-10.1); CHLORIDE 99 MMOL/L (99-107); CREATININE 1.46 MG/DL (0.40-0.90); GLUCOSE 129 MG/DL (70-104); MAGNESIUM 2.2 MG/DL (1.5-2.4); POTASSIUM 4.2 MMOL/L (3.5-5.1); SODIUM 137 MMOL/L (135-145); TOTAL CARBON DIOXIDE 29.6 MMOL/L (24-32); eGFR 35 ML/MIN
--- NOTE | 2018-07-02 06:25 | NUR ---
Problems reprioritized. Patient report given, questions answered & plan of care reviewed with Avelina OLSON.
[2018-07-02 07:00] VITALS: BP 130/39
[2018-07-02] MEDS: K and/or MAG REPLACEMENT MC SCH (08:00)
[2018-07-02] MEDS ORDERED: enoxaparin 30mg/0.3ml syringe SUBCUT SCH (08:00)
[2018-07-02] MEDS: ipratropium 0.5 MG/2.5ML nebule IH PRN (08:53)
[2018-07-02] MEDS: BUDESONIDE 0.25 MG/2 ML AMPUL.NEB IH SCH (08:54)
[2018-07-02] MEDS: furosemide 40mg/4ml inj IV SCH (08:56)
[2018-07-02] MEDS: aspirin 81mg tab.chew PO SCH (08:56)
[2018-07-02] MEDS: FLUoxetine 20mg capsule PO SCH (08:56)
[2018-07-02] MEDS: amLODIPine 5mg tablet PO SCH (09:04)
[2018-07-02] MEDS: CLONAZEPAM 0.25 MG oral disentigrating tablet (ODT) PO SCH (09:05)
[2018-07-02] MEDS: pantoprazole 40mg Tablet.DR PO SCH (09:05)
[2018-07-02] MEDS: carvedilol 6.25mg tablet PO SCH (09:10)
[2018-07-02 11:00] VITALS: BP 114/36
--- NOTE | 2018-07-02 13:07 | NUR ---
Pt discharged, IV out,no new medications to call in ,patient stable
== END 2018-07-02 12:45 | disposition home health service (06) | DRG 291 ==
LOC: ER 21:31 → PCU 3S 06-29 07:24
PROVIDERS: ADMIT Hospitalist; ATTEND Internal Medicine
PROC: 5A09357 Assistance with Respiratory Ventilation, Less than 24 Consecutive Hours, Continuous Positive Airway Pressure (ICD-10-PCS; principal; 2018-06-28)
PROC: 5A09357 Assistance with Respiratory Ventilation, Less than 24 Consecutive Hours, Continuous Positive Airway Pressure (ICD-10-PCS; 2018-06-29)
PROC: 5A09357 Assistance with Respiratory Ventilation, Less than 24 Consecutive Hours, Continuous Positive Airway Pressure (ICD-10-PCS; 2018-07-01)
DX: I13.0 Hypertensive heart and chronic kidney disease with heart failure and stage 1 through stage 4 chronic kidney disease, or unspecified chronic kidney disease (principal); I50.33 Acute on chronic diastolic (congestive) heart failure; J96.21 Acute and chronic respiratory failure with hypoxia; Z68.41 Body mass index [BMI] 40.0-44.9, adult; D63.8 Anemia in other chronic diseases classified elsewhere; E11.22 Type 2 diabetes mellitus with diabetic chronic kidney disease; I08.0 Rheumatic disorders of both mitral and aortic valves; I27.81 Cor pulmonale (chronic); I25.10 Atherosclerotic heart disease of native coronary artery without angina pectoris; F32.9 Major depressive disorder, single episode, unspecified; E66.01 Morbid (severe) obesity due to excess calories; F41.9 Anxiety disorder, unspecified; J44.9 Chronic obstructive pulmonary disease, unspecified; N18.3 Chronic kidney disease, stage 3 (moderate); Z66 Do not resuscitate; Z98.84 Bariatric surgery status; Z98.61 Coronary angioplasty status; Z79.899 Other long term (current) drug therapy; Z87.891 Personal history of nicotine dependence; Z87.440 Personal history of urinary (tract) infections; Z82.49 Family history of ischemic heart disease and other diseases of the circulatory system; Z82.5 Family history of asthma and other chronic lower respiratory diseases; Z80.9 Family history of malignant neoplasm, unspecified
CPT/HCPCS: 36415; 36600; 71045; 80048; 80053; 82803; 83036; 83735; 83880; 84484; 85018; 85025; 85610; 85730; 87070; 93005; 93306; 94640; 94660; 94760; 96374; 99285; G0378; J1650; J1940; J2060; J7626